=== PATIENT | female | born 1970 | race Caucasian/White ===

== ENCOUNTER 2018-05-30 17:58 | Observation (INO) | payer MEDICARE, OTHER ==
[~2018-05-30] VITALS: Ht 160 cm; Wt 100.7 kg
[~2018-05-30 17:58] MED LIST changes: -ALBU18HF INH; -ALPR0.5T6 PO; -AMOX1TAB11 PO; -BUDE10.2 INH; -CITA40TA5 PO; -CYCL-331 PO; -DULO60CA44 PO; -DULO60CA6 PO; -FERR325T20 PO; -FOLI1TAB35 PO; -FURO20TA3 PO; -LACT1CAP24 PO; -LACT1CAP6 PO; -MIRA25TA PO; -MONT10TA9 PO; -NAPR-514 PO; -OMEP40CA5 PO; -OXYC1TAB8 PO; -POTA20TA4 PO; -PROM25TA10 PO; -RANI150T2 PO; -RIVA15TA PO; -RIVA20TA2 PO; -SUCR1TAB PO; -SUMA100T4 PO; -TOPI100T8 PO; -TOPI200T6 PO
[2018-05-30] MEDS ORDERED: MORPHINE SULFATE 4 MG/ML DISP.SYRIN. IV ONE (19:30)
[2018-05-30 20:04] LABS: BASO % 1 % (0-3); EOS # 0.2 x10^3/uL (0.0-0.7); EOS % 3 % (0-3); HEMATOCRIT 36.6 % (36.0-47.0); LYMPH # 2.3 x10^3/uL (1.0-4.8); LYMPH % 33 % (24-48); MEAN CORPUSCULAR HEMOGLOBIN 30 pg (25-35); MEAN CORPUSCULAR HGB CONC 33 g/dL (31-37); MEAN CORPUSCULAR VOLUME 91 fL (79-100); MONO # 0.5 x10^3/uL (0.0-1.1); MONO % 7 % (0-9); NEUT # 3.8 x10^3uL (1.8-7.7); NEUT % 56 % (31-73); PLATELET COUNT 236 x10^3/uL (140-400); RED BLOOD COUNT 4.04 x10^6/uL (3.50-5.40); RED CELL DISTRIBUTION WIDTH 14.8 % (11.5-14.5); WHITE BLOOD COUNT 6.8 x10^3/uL (4.0-11.0)
[2018-05-30 20:10] LABS: CALCIUM 9.3 mg/dL (8.5-10.1); CREATININE 0.6 mg/dL (0.6-1.0); GFR 105.8; POTASSIUM 3.3 mmol/L (3.5-5.1)
[2018-05-30] MEDS ORDERED: IV NORMAL SALINE 1,000ML 1,000 ML IV ONE (20:15)
[2018-05-30] MEDS ORDERED: KETOROLAC 15 MG/ML VIAL. IV ONE (20:45)
--- NOTE | 2018-05-30 20:50 | PHYS DOC ---
Adult General Chief Complaint Chief Complaint Leg pain HPI HPI 48 years old female was diagnosed with DVT this morning due to leg pain she had a sonogram showed right posterior tibial vein clot. Her primary care provider Dr. Liu called rescue to come to the emergency department for admission No chest pain no shortness breath no urgency no frequency no hematuria no other symptoms Review of Systems Review of Systems Constitutional: Denies fever or chills [] Eyes: Denies change in visual acuity, redness, or eye pain [] HENT: Denies nasal congestion or sore throat [] Respiratory: Denies cough or shortness of breath [] Cardiovascular: No additional information not addressed in HPI [] GI: Denies abdominal pain, nausea, vomiting, bloody stools or diarrhea [] : Denies dysuria or hematuria [] Musculoskeletal: Denies back pain or joint pain [] Integument: Denies rash or skin lesions [] Neurologic: Denies headache, focal weakness or sensory changes [] Endocrine: Denies polyuria or polydipsia [] All other systems were reviewed and found to be within normal limits, except as documented in this note. Current Medications Current Medications Current Medications Medications (Trade) Dose Ordered Sig/Miguel A Start Time Stop Time Status Last Admin Dose Admin Enoxaparin Sodium (Lovenox 120mg Syringe) 120 mg 1X ONCE 05/30/18 20:45 05/30/18 20:46 UNV Ketorolac Tromethamine (Toradol 15mg Vial) 15 mg 1X ONCE 05/30/18 20:45 05/30/18 20:46 DC Morphine Sulfate (Morphine 4mg Syringe) 4 mg 1X ONCE 05/30/18 19:30 05/30/18 19:31 DC Sodium Chloride 1,000 ml @ 1,000 mls/hr 1X ONCE 05/30/18 20:15 05/30/18 21:14 05/30/18 20:27 1,000 MLS/HR Allergies Allergies Allergies Coded Allergies Type Severity Reaction Last Updated Verified codeine Allergy Intermediate Nausea and Vomiting 10/26/13 Yes morphine Allergy Intermediate Itching 05/30/18 Yes influenza virus vaccine, specific Allergy Unknown 01/16/14 No Physical Exam Physical Exam Constitutional: Well developed, well nourished, no acute distress, non-toxic appearance. [] HENT: Normocephalic, atraumatic, bilateral external ears normal, oropharynx moist, no oral exudates, nose normal. [] Eyes: PERRLA, EOMI, conjunctiva normal, no discharge. [] Neck: Normal range of motion, no tenderness, supple, no stridor. [] Cardiovascular:Heart rate regular rhythm, no murmur [] Lungs & Thorax: Bilateral breath sounds clear to auscultation [] Abdomen: Bowel sounds normal, soft, no tenderness, no masses, no pulsatile masses. [] Skin: Warm, dry, no erythema, no rash. [] Back: No tenderness, no CVA tenderness. [] Extremities: Tender right leg Neurologic: Alert and oriented X 3, normal motor function, normal sensory function, no focal deficits noted. [] Psychologic: Affect normal, judgement normal, mood normal. [] Current Patient Data Vital Signs Vital Signs Date Time Temp Pulse Resp B/P (MAP) Pulse Ox O2 Delivery O2 Flow Rate FiO2 05/30/18 18:00 98.3 78 22 97 Room Air Lab Results Laboratory Tests Test 05/30/18 19:47 White Blood Count 6.8 x10^3/uL (4.0-11.0) Red Blood Count 4.04 x10^6/uL (3.50-5.40) Hemoglobin 12.0 g/dL (12.0-15.5) Hematocrit 36.6 % (36.0-47.0) Mean Corpuscular Volume 91 fL (79-100) Mean Corpuscular Hemoglobin 30 pg (25-35) Mean Corpuscular Hemoglobin Concent 33 g/dL (31-37) Red Cell Distribution Width 14.8 % (11.5-14.5) H Platelet Count 236 x10^3/uL (140-400) Neutrophils (%) (Auto) 56 % (31-73) Lymphocytes (%) (Auto) 33 % (24-48) Monocytes (%) (Auto) 7 % (0-9) Eosinophils (%) (Auto) 3 % (0-3) Basophils (%) (Auto) 1 % (0-3) Neutrophils # (Auto) 3.8 x10^3uL (1.8-7.7) Lymphocytes # (Auto) 2.3 x10^3/uL (1.0-4.8) Monocytes # (Auto) 0.5 x10^3/uL (0.0-1.1) Eosinophils # (Auto) 0.2 x10^3/uL (0.0-0.7) Basophils # (Auto) 0.0 x10^3/uL (0.0-0.2) Sodium Level 142 mmol/L (136-145) Potassium Level 3.3 mmol/L (3.5-5.1) L Chloride Level 105 mmol/L (98-107) Carbon Dioxide Level 27 mmol/L (21-32) Anion Gap 10 (6-14) Blood Urea Nitrogen 15 mg/dL (7-20) Creatinine 0.6 mg/dL (0.6-1.0) Estimated GFR (Cockcroft-Gault) 105.8 Glucose Level 84 mg/dL (70-99) Calcium Level 9.3 mg/dL (8.5-10.1) EKG EKG [] Radiology/Procedures Radiology/Procedures [] Course & Med Decision Making Course & Med Decision Making Pertinent Labs and Imaging studies reviewed. (See chart for details) [] Final Impression Final Impression [] Problems: (1) DVT (deep venous thrombosis) Qualifiers: Qualified Codes: I82.441 - Acute embolism and thrombosis of right tibial vein Dragon Disclaimer Dragon Disclaimer This electronic medical record was generated, in whole or in part, using a voice recognition dictation system. FABIEN GOMEZ MD May 30, 2018 20:50
[2018-05-30] MEDS ORDERED: ACETAMINOPHEN 325 MG TABLET PO PRN (21:00)
[2018-05-30] MEDS ORDERED: ENOXAPARIN ** NOTE DOSE ** SYRINGE SQ ONE (21:00)
[2018-05-30] MEDS ORDERED: ONDANSETRON PF 4 MG/2 ML VIAL. IV PRN (21:00)
[2018-05-30] MEDS ORDERED: RIVA15TA PO (21:37)
[2018-05-30] MEDS ORDERED: RIVA20TA2 PO (21:37)
[2018-05-30] MEDS ORDERED: RIVAROXABAN 15 MG TABLET. PO ONE (22:30)
[2018-05-31] VITALS: BP 123/75
[2018-05-31] MEDS ORDERED: ALPRAZolam 0.5 MG TABLET PO PRN (00:45)
[2018-05-31] MEDS ORDERED: CYCLOBENZAPRINE 10 MG TABLET. PO PRN (00:45)
[2018-05-31] MEDS ORDERED: PROMETHAZINE 25 MG TABLET. PO PRN (00:45)
[2018-05-31] MEDS ORDERED: oxyCODONE/APAP 7.5/325 1 TAB TABLET PO PRN (00:45)
[2018-05-31] MEDS ORDERED: ALBUTEROL SULFATE 8GM INHALER. INH PRN (00:45)
[2018-05-31] MEDS ORDERED: TOPI200T6 PO (01:25)
[2018-05-31] MEDS ORDERED: CYCL-331 PO (01:25)
[2018-05-31] MEDS ORDERED: MONT10TA9 PO ×2 (01:25→03:38)
[2018-05-31] MEDS ORDERED: FOLI1TAB35 PO ×2 (01:25→03:38)
[2018-05-31] MEDS ORDERED: FERR325T20 PO (01:25)
[2018-05-31] MEDS ORDERED: NAPR-514 PO (01:25)
[2018-05-31] MEDS ORDERED: POTA20TA4 PO (01:25)
[2018-05-31] MEDS ORDERED: PROM25TA10 PO (01:25)
[2018-05-31] MEDS ORDERED: ALBU18HF INH (01:25)
[2018-05-31] MEDS ORDERED: AMOX1TAB11 PO (01:25)
[2018-05-31] MEDS ORDERED: OXYC1TAB8 PO (01:25)
[2018-05-31] MEDS ORDERED: DULO60CA44 PO (01:25)
[2018-05-31] MEDS ORDERED: LACT1CAP6 PO (01:25)
[2018-05-31] MEDS ORDERED: BUDE10.2 INH (01:25)
[2018-05-31] MEDS ORDERED: CITA40TA5 PO ×2 (01:25→03:38)
[2018-05-31] MEDS ORDERED: OMEP40CA5 PO ×2 (01:25→03:38)
[2018-05-31] MEDS ORDERED: SUCR1TAB PO ×2 (01:25→03:38)
[2018-05-31] MEDS ORDERED: RANI150T2 PO ×2 (01:25→03:38)
[2018-05-31] MEDS ORDERED: ALPR0.5T6 PO ×2 (01:25→03:38)
[2018-05-31] MEDS ORDERED: SUMA100T4 PO ×2 (01:25→03:38)
[2018-05-31] MEDS ORDERED: MIRA25TA PO (01:25)
[2018-05-31] MEDS ORDERED: FURO20TA3 PO (01:25)
[2018-05-31 03:13] VITALS: BP 165/87
[2018-05-31] MEDS ORDERED: DULO60CA6 PO (03:38)
[2018-05-31] MEDS ORDERED: LACT1CAP24 PO (03:38)
[2018-05-31] MEDS ORDERED: TOPI100T8 PO (03:38)
[2018-05-31 07:04] VITALS: BP 147/90
[2018-05-31] MEDS ORDERED: SUCRALFATE 1 GM TABLET. PO SCH (07:30)
[2018-05-31] MEDS ORDERED: PANTOPRAZOLE 40 MG TABLET. PO SCH (07:30)
[2018-05-31] MEDS ORDERED: POTASSIUM CHLORIDE 20 MEQ TABLET.ER. PO ONE (07:30)
--- NOTE | 2018-05-31 07:35 | PDOC1 ---
History of Present Illness Chief Complaint: LOWER EXT PAIN Allergies: Coded Allergies: codeine (Verified Allergy, Intermediate, Nausea and Vomiting, 05/31/18) morphine (Verified Allergy, Intermediate, Itching, 05/31/18) influenza virus vaccine, specific (Unverified Allergy, Unknown, 05/31/18) Review of Systems Review Of Systems Fourteen system , review of systems has been reviewed. See HPI for pertinent positives and negative responses, other panda all other systems are negative, non pertinent or non contributory Medications Current Medications Morphine Sulfate (Morphine 4mg Syringe) 4 mg 1X ONCE IV ; Start 05/30/18 at 19: 30; Stop 05/30/18 at 19:31; Status DC Sodium Chloride 1,000 ml @ 1,000 mls/hr 1X ONCE IV Last administered on at 20:27; Start 05/30/18 at 20:15; Stop 05/30/18 at 21:14; Status DC Ketorolac Tromethamine (Toradol 15mg Vial) 15 mg 1X ONCE IV Last administered on 05/30/18at 20:38; Start 05/30/18 at 20:45; Stop 05/30/18 at 20:46; Status DC Enoxaparin Sodium (Lovenox 120mg Syringe) 120 mg 1X ONCE SQ ; Start 05/30/18 at 21:00; Stop 05/30/18 at 22:06; Status DC Ondansetron HCl (Zofran) 4 mg PRN Q4HRS PRN IV NAUSEA/VOMITING; Start 05/30/18 at 21:00; Stop 05/31/18 at 20:59 Acetaminophen (Tylenol) 650 mg PRN Q4HRS PRN PO FEVER; Start 05/30/18 at 21:00 ; Stop 05/31/18 at 20:59 Rivaroxaban (Xarelto) 15 mg ONCE ONCE PO Last administered on 05/30/18at 23:08 ; Start 05/30/18 at 22:30; Stop 05/30/18 at 22:31; Status DC Albuterol Sulfate (Ventolin Hfa Inhaler) 2 puff PRN Q6HRS PRN INH SHORTNESS OF BREATH; Start 05/31/18 at 00:45 Cyclobenzaprine HCl (Flexeril) 10 mg PRN Q8HRS PRN PO MUSCLE SPASMS; Start 05/31/18 at 00:45 Ferrous Sulfate (Feosol) 325 mg DAILY PO ; Start 05/31/18 at 09:00 Furosemide (Lasix) 20 mg DAILY08 PO ; Start 05/31/18 at 08:00 Mirabegron (Myrbetriq) 25 mg DAILY08 PO ; Start 05/31/18 at 08:00 Oxycodone/ Acetaminophen (Percocet 7.5/ 325) 1 tab PRN Q6HRS PRN PO PAIN; Start 05/31/18 at 00:45 Potassium Chloride (Klor-Con) 20 meq DAILY08 PO ; Start 05/31/18 at 08:00 Promethazine HCl (Phenergan) 25 mg PRN Q8HRS PRN PO NAUSEA; Start 05/31/18 at 00:45 Alprazolam (Xanax) 0.5 mg PRN Q12HR PRN PO ANXIETY / AGITATION; Start 05/31/18 at 00:45 Citalopram Hydrobromide (CeleXA) 40 mg DAILY08 PO ; Start 05/31/18 at 08:00 Duloxetine HCl (Cymbalta) 60 mg DAILY08 PO ; Start 05/31/18 at 08:00 Multivitamins/ Calcium (Thera-M Plus) 1 tab DAILY08 PO ; Start 05/31/18 at 08:00 Lactobacillus Rhamnosus (Culturelle) 1 cap DAILY10 PO ; Start 05/31/18 at 10:00 Montelukast Sodium (Singulair) 10 mg DAILY08 PO ; Start 05/31/18 at 08:00 Pantoprazole Sodium (Protonix) 40 mg DAILYAC PO ; Start 05/31/18 at 07:30 Famotidine (Pepcid) 20 mg BID PO ; Start 05/31/18 at 09:00 Sucralfate (Carafate) 1 gm QIDACHS PO ; Start 05/31/18 at 07:30 Sumatriptan Succinate (Imitrex) 50 mg Q12HR PO ; Start 05/31/18 at 09:00 Topiramate (Topamax) 200 mg BID PO ; Start 05/31/18 at 09:00 Potassium Chloride (Klor-Con) 20 meq 1X ONCE PO ; Start 05/31/18 at 07:30; Stop 05/31/18 at 07:31; Status DC Active Scripts Active Xarelto (Rivaroxaban) 20 Mg Tablet 20 Mg PO DAILY 30 Days Xarelto (Rivaroxaban) 15 Mg Tablet 15 Mg PO BID 15 Days Reported One Daily For Women Tablet (Folic Acid/Mv,Fe,Other Min) 1 Each Tablet 1 Each PO DAILY10 Omeprazole 40 Mg Capsule.dr 1 Cap PO DAILY07 Sucralfate 1 Gm Tablet 1 Tab PO QIDACHS Ranitidine Hcl 150 Mg Tablet 1 Tab PO BID Acidophilus Lactobacillus (Lactobacillus Acidophilus) 1 Each Capsule 1 Each PO DAILY10 Montelukast Sodium Tablet (Montelukast Sodium) 10 Mg Tablet 1 Tab PO DAILY08 Sumatriptan Succinate 100 Mg Tablet 1 Tab PO Q12HR PRN Alprazolam 0.5 Mg Tablet 1 Tab PO BID Cymbalta (Duloxetine Hcl) 60 Mg Capsule. 1 Cap PO DAILY08 Citalopram Hbr (Citalopram Hydrobromide) 40 Mg Tablet 40 Mg PO DAILY08 Topiramate 100 Mg Tablet 2 Tab PO BID Ferosul (Ferrous Sulfate) 325 Mg Tablet 1 Tab PO DAILY Myrbetriq (Mirabegron) 25 Mg Tab.er.24h 25 Mg PO DAILY08 Oxycodon-Acetaminophen 7.5-325 (Oxycodone Hcl/Acetaminophen) 1 Each Tablet 1 Tab PO Q6HRS PRN Naproxen 500 Mg Tablet 500 Mg PO BID PRN Cyclobenzaprine Hcl 10 Mg Tablet 10 Mg PO Q8HRS PRN Klor-Con M20 (Potassium Chloride) 20 Meq Tab.er.prt 20 Meq PO DAILY08 Symbicort 160-4.5 Mcg Inhaler (Budesonide/Formoterol Fumarate) 10.2 Gm Hfa.aer.ad 2 Puff INH BID Furosemide 20 Mg Tablet 20 Mg PO DAILY08 Promethazine Hcl 25 Mg Tablet 25 Mg PO Q8HRS PRN Ventolin Hfa Inhaler (Albuterol Sulfate) 18 Gm Hfa.aer.ad 2 Puff INH Q6HRS PRN Amox Tr-K Clv 875-125 Mg Tab (Amoxicillin/Potassium Clav) 1 Each Tablet 1 Tab PO BID Exam Vital Signs Vital Signs Date Time Temp Pulse Resp B/P (MAP) Pulse Ox O2 Delivery O2 Flow Rate FiO2 05/31/18 07:04 98.7 70 18 147/90 (109) 94 Room Air COURSE Allergies Coded Allergies Type Severity Reaction Last Updated Verified codeine Allergy Intermediate Nausea and Vomiting 05/31/18 Yes morphine Allergy Intermediate Itching 05/31/18 Yes influenza virus vaccine, specific Allergy Unknown 05/31/18 No Laboratory Tests Test 05/30/18 19:47 White Blood Count 6.8 x10^3/uL (4.0-11.0) Red Blood Count 4.04 x10^6/uL (3.50-5.40) Hemoglobin 12.0 g/dL (12.0-15.5) Hematocrit 36.6 % (36.0-47.0) Mean Corpuscular Volume 91 fL (79-100) Mean Corpuscular Hemoglobin 30 pg (25-35) Mean Corpuscular Hemoglobin Concent 33 g/dL (31-37) Red Cell Distribution Width 14.8 % (11.5-14.5) Platelet Count 236 x10^3/uL (140-400) Neutrophils (%) (Auto) 56 % (31-73) Lymphocytes (%) (Auto) 33 % (24-48) Monocytes (%) (Auto) 7 % (0-9) Eosinophils (%) (Auto) 3 % (0-3) Basophils (%) (Auto) 1 % (0-3) Neutrophils # (Auto) 3.8 x10^3uL (1.8-7.7) Lymphocytes # (Auto) 2.3 x10^3/uL (1.0-4.8) Monocytes # (Auto) 0.5 x10^3/uL (0.0-1.1) Eosinophils # (Auto) 0.2 x10^3/uL (0.0-0.7) Basophils # (Auto) 0.0 x10^3/uL (0.0-0.2) Sodium Level 142 mmol/L (136-145) Potassium Level 3.3 mmol/L (3.5-5.1) Chloride Level 105 mmol/L (98-107) Carbon Dioxide Level 27 mmol/L (21-32) Anion Gap 10 (6-14) Blood Urea Nitrogen 15 mg/dL (7-20) Creatinine 0.6 mg/dL (0.6-1.0) Estimated GFR (Cockcroft-Gault) 105.8 Glucose Level 84 mg/dL (70-99) Calcium Level 9.3 mg/dL (8.5-10.1) Current Medications Medications (Trade) Dose Ordered Sig/Miguel A Route PRN Reason Start Time Stop Time Status Last Admin Dose Admin Morphine Sulfate (Morphine 4mg Syringe) 4 mg 1X ONCE IV 05/30/18 19:30 05/30/18 19:31 DC Sodium Chloride 1,000 ml @ 1,000 mls/hr 1X ONCE IV 05/30/18 20:15 05/30/18 21:14 DC 05/30/18 20:27 Ketorolac Tromethamine (Toradol 15mg Vial) 15 mg 1X ONCE IV 05/30/18 20:45 05/30/18 20:46 DC 05/30/18 20:38 Enoxaparin Sodium (Lovenox 120mg Syringe) 120 mg 1X ONCE SQ 05/30/18 21:00 05/30/18 22:06 DC Ondansetron HCl (Zofran) 4 mg PRN Q4HRS PRN IV NAUSEA/VOMITING 05/30/18 21:00 05/31/18 20:59 Acetaminophen (Tylenol) 650 mg PRN Q4HRS PRN PO FEVER 05/30/18 21:00 05/31/18 20:59 Rivaroxaban (Xarelto) 15 mg ONCE ONCE PO 05/30/18 22:30 05/30/18 22:31 DC 05/30/18 23:08 Albuterol Sulfate (Ventolin Hfa Inhaler) 2 puff PRN Q6HRS PRN INH SHORTNESS OF BREATH 05/31/18 00:45 Cyclobenzaprine HCl (Flexeril) 10 mg PRN Q8HRS PRN PO MUSCLE SPASMS 05/31/18 00:45 Ferrous Sulfate (Feosol) 325 mg DAILY PO 05/31/18 09:00 Furosemide (Lasix) 20 mg DAILY08 PO 05/31/18 08:00 Mirabegron (Myrbetriq) 25 mg DAILY08 PO 05/31/18 08:00 Oxycodone/ Acetaminophen (Percocet 7.5/ 325) 1 tab PRN Q6HRS PRN PO PAIN 05/31/18 00:45 Potassium Chloride (Klor-Con) 20 meq DAILY08 PO 05/31/18 08:00 Promethazine HCl (Phenergan) 25 mg PRN Q8HRS PRN PO NAUSEA 05/31/18 00:45 Alprazolam (Xanax) 0.5 mg PRN Q12HR PRN PO ANXIETY / AGITATION 05/31/18 00:45 Citalopram Hydrobromide (CeleXA) 40 mg DAILY08 PO 05/31/18 08:00 Duloxetine HCl (Cymbalta) 60 mg DAILY08 PO 05/31/18 08:00 Multivitamins/ Calcium (Thera-M Plus) 1 tab DAILY08 PO 05/31/18 08:00 Lactobacillus Rhamnosus (Culturelle) 1 cap DAILY10 PO 05/31/18 10:00 Montelukast Sodium (Singulair) 10 mg DAILY08 PO 05/31/18 08:00 Pantoprazole Sodium (Protonix) 40 mg DAILYAC PO 05/31/18 07:30 Famotidine (Pepcid) 20 mg BID PO 05/31/18 09:00 Sucralfate (Carafate) 1 gm QIDACHS PO 05/31/18 07:30 Sumatriptan Succinate (Imitrex) 50 mg Q12HR PO 05/31/18 09:00 Topiramate (Topamax) 200 mg BID PO 05/31/18 09:00 Potassium Chloride (Klor-Con) 20 meq 1X ONCE PO 05/31/18 07:30 05/31/18 07:31 DC I & O 05/31/18 00:00 Intake Total 1060 ml Balance 1060 ml Orders Procedure Category Date Status Time Cbc W [employer] LAB 05/30/18 Complete 19:09 Basic Metabolic Panel LAB 05/30/18 Complete 19:09 I Stat Inr ELAINE 05/30/18 In Process 19:09 Morphine Sulfate PHA 05/30/18 Complete (Morphine 4mg Syringe) 19:30 Iv Normal Saline PHA 05/30/18 Complete 1,000ml (Iv Sodium 20:15 Ketorolac 15mg Vial PHA 05/30/18 Complete (Toradol 15mg Vial) 20:45 Drugs Of Abuse Ur LAB 05/30/18 Logged 20:37 Enoxaparin 120mg PHA 05/30/18 Complete Syringe (Lovenox 120mg 21:00 [place] Order ADT 05/30/18 Transmitted 20:46 Code Status CODE 05/30/18 Transmitted 20:46 Vital Signs, Per ELAINE 05/30/18 In Process Protocol 20:46 Regular DIET 05/31/18 Transmitted Breakfast Ondansetron Pf PHA 05/30/18 In Process (Zofran) 21:00 Acetaminophen PHA 05/30/18 In Process (Tylenol) 21:00 Rivaroxaban (Xarelto) PHA 05/30/18 Complete 22:30 Mrsa By Pcr LAB 05/30/18 In Process 23:13 Admit Orders ADT 05/31/18 Transmitted 00:25 Albuterol Sulfate 8gm PHA 05/31/18 In Process Inhaler (Ventolin 00:45 Ferrous Sulfate PHA 05/31/18 In Process (Feosol) 09:00 Furosemide Tablet PHA 05/31/18 In Process (Lasix) 08:00 Mirabegron (Myrbetriq) PHA 05/31/18 In Process 08:00 Oxycodone/Apap PHA 05/31/18 In Process 7.5/325 (Percocet 00:45 Potassium Chloride PHA 05/31/18 In Process Tab (Klor-Con) 08:00 Alprazolam (Xanax) PHA 05/31/18 In Process 00:45 Citalopram (Celexa) PHA 05/31/18 In Process 08:00 Duloxetine Hcl PHA 05/31/18 In Process (Cymbalta) 08:00 Multivitamin With PHA 05/31/18 In Process Mineral (Thera-M Plus) 08:00 Lactobacillus PHA 05/31/18 In Process Rhamnosus Gg 10:00 Montelukast PHA 05/31/18 In Process (Singulair) 08:00 Pantoprazole PHA 05/31/18 In Process (Protonix) 07:30 Famotidine (Pepcid) PHA 05/31/18 In Process 09:00 Sucralfate (Carafate) PHA 05/31/18 In Process 07:30 Sumatriptan Succinate PHA 05/31/18 In Process (Imitrex) 09:00 Topiramate (Topamax) PHA 05/31/18 In Process 09:00 Promethazine PHA 05/31/18 In Process (Phenergan) 00:45 Cyclobenzaprine PHA 05/31/18 In Process (Flexeril) 00:45 Potassium Chloride PHA 05/31/18 Complete Tab (Klor-Con) 07:30 Vital Signs Date Time Temp Pulse Resp B/P (MAP) Pulse Ox O2 Delivery O2 Flow Rate FiO2 05/31/18 07:04 98.7 70 18 147/90 (109) 94 Room Air VINCENT REHMAN DO May 31, 2018 07:35
--- NOTE | 2018-05-31 07:41 | PDOC1 ---
History of Present Illness History of Present Illness 48 years old female was diagnosed with DVT this morning due to leg pain she had a sonogram showed right posterior tibial vein clot. Her primary care provider Dr. Liu called EMS to bring patient to the emergency department for admission No chest pain no shortness breath no urgency no frequency no hematuria no other symptoms. ED workup revealed potassium of 3.3 otherwise CBC and chemistry were unremarkable. Patient takes potassium at home. When I evaluated her early this morning she denied any new or worsening symptoms. She reported that she had been given instructions in detail by the emergency department physician regarding Xarelto. She would like to go home now actually she would like to take a cab to one of her friends houses as she says her works and will be asleep until approximately 1 PM. She denies any questions or complaints and wants to go home now. 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 See HPI for pertinent positives and negative responses, other panda all other systems are negative, non pertinent or non contributory Constitutional: No: Fever, Chills Eyes: No: Blurry vision, Decreased vision ENT: No: Ear pain, Mouth pain Respiratory: No: Cough, Shortness of breath Cardiovascular: No: Chest Pain, Palpitations Gastrointestinal: No: Nausea, Vomiting, Abdominal Pain Musculoskeletal: YES: Other (see history of present illness); No: Joint Swelling, Muscular Weakness Neurological: No: Confusion, Dizziness, Headaches, Impaired Coord/balance Medications Current Medications Morphine Sulfate (Morphine 4mg Syringe) 4 mg 1X ONCE IV ; Start 05/30/18 at 19: 30; Stop 05/30/18 at 19:31; Status DC Sodium Chloride 1,000 ml @ 1,000 mls/hr 1X ONCE IV Last administered on at 20:27; Start 05/30/18 at 20:15; Stop 05/30/18 at 21:14; Status DC Ketorolac Tromethamine (Toradol 15mg Vial) 15 mg 1X ONCE IV Last administered on 05/30/18at 20:38; Start 05/30/18 at 20:45; Stop 05/30/18 at 20:46; Status DC Enoxaparin Sodium (Lovenox 120mg Syringe) 120 mg 1X ONCE SQ ; Start 05/30/18 at 21:00; Stop 05/30/18 at 22:06; Status DC Ondansetron HCl (Zofran) 4 mg PRN Q4HRS PRN IV NAUSEA/VOMITING; Start 05/30/18 at 21:00; Stop 05/31/18 at 20:59 Acetaminophen (Tylenol) 650 mg PRN Q4HRS PRN PO FEVER; Start 05/30/18 at 21:00 ; Stop 05/31/18 at 20:59 Rivaroxaban (Xarelto) 15 mg ONCE ONCE PO Last administered on 05/30/18at 23:08 ; Start 05/30/18 at 22:30; Stop 05/30/18 at 22:31; Status DC Albuterol Sulfate (Ventolin Hfa Inhaler) 2 puff PRN Q6HRS PRN INH SHORTNESS OF BREATH; Start 05/31/18 at 00:45 Cyclobenzaprine HCl (Flexeril) 10 mg PRN Q8HRS PRN PO MUSCLE SPASMS; Start 05/31/18 at 00:45 Ferrous Sulfate (Feosol) 325 mg DAILY PO ; Start 05/31/18 at 09:00 Furosemide (Lasix) 20 mg DAILY08 PO ; Start 05/31/18 at 08:00 Mirabegron (Myrbetriq) 25 mg DAILY08 PO ; Start 05/31/18 at 08:00 Oxycodone/ Acetaminophen (Percocet 7.5/ 325) 1 tab PRN Q6HRS PRN PO PAIN; Start 05/31/18 at 00:45 Potassium Chloride (Klor-Con) 20 meq DAILY08 PO ; Start 05/31/18 at 08:00 Promethazine HCl (Phenergan) 25 mg PRN Q8HRS PRN PO NAUSEA; Start 05/31/18 at 00:45 Alprazolam (Xanax) 0.5 mg PRN Q12HR PRN PO ANXIETY / AGITATION; Start 05/31/18 at 00:45 Citalopram Hydrobromide (CeleXA) 40 mg DAILY08 PO ; Start 05/31/18 at 08:00 Duloxetine HCl (Cymbalta) 60 mg DAILY08 PO ; Start 05/31/18 at 08:00 Multivitamins/ Calcium (Thera-M Plus) 1 tab DAILY08 PO ; Start 05/31/18 at 08:00 Lactobacillus Rhamnosus (Culturelle) 1 cap DAILY10 PO ; Start 05/31/18 at 10:00 Montelukast Sodium (Singulair) 10 mg DAILY08 PO ; Start 05/31/18 at 08:00 Pantoprazole Sodium (Protonix) 40 mg DAILYAC PO ; Start 05/31/18 at 07:30 Famotidine (Pepcid) 20 mg BID PO ; Start 05/31/18 at 09:00 Sucralfate (Carafate) 1 gm QIDACHS PO ; Start 05/31/18 at 07:30 Sumatriptan Succinate (Imitrex) 50 mg Q12HR PO ; Start 05/31/18 at 09:00 Topiramate (Topamax) 200 mg BID PO ; Start 05/31/18 at 09:00 Potassium Chloride (Klor-Con) 20 meq 1X ONCE PO ; Start 05/31/18 at 07:30; Stop 05/31/18 at 07:31; Status DC Active Scripts Active Xarelto (Rivaroxaban) 20 Mg Tablet 20 Mg PO DAILY 30 Days Xarelto (Rivaroxaban) 15 Mg Tablet 15 Mg PO BID 15 Days Reported One Daily For Women Tablet (Folic Acid/Mv,Fe,Other Min) 1 Each Tablet 1 Each PO DAILY10 Omeprazole 40 Mg Capsule. 1 Cap PO DAILY07 Sucralfate 1 Gm Tablet 1 Tab PO QIDACHS Ranitidine Hcl 150 Mg Tablet 1 Tab PO BID Acidophilus Lactobacillus (Lactobacillus Acidophilus) 1 Each Capsule 1 Each PO DAILY10 Montelukast Sodium Tablet (Montelukast Sodium) 10 Mg Tablet 1 Tab PO DAILY08 Sumatriptan Succinate 100 Mg Tablet 1 Tab PO Q12HR PRN Alprazolam 0.5 Mg Tablet 1 Tab PO BID Cymbalta (Duloxetine Hcl) 60 Mg Capsule. 1 Cap PO DAILY08 Citalopram Hbr (Citalopram Hydrobromide) 40 Mg Tablet 40 Mg PO DAILY08 Topiramate 100 Mg Tablet 2 Tab PO BID Ferosul (Ferrous Sulfate) 325 Mg Tablet 1 Tab PO DAILY Myrbetriq (Mirabegron) 25 Mg Tab.er.24h 25 Mg PO DAILY08 Oxycodon-Acetaminophen 7.5-325 (Oxycodone Hcl/Acetaminophen) 1 Each Tablet 1 Tab PO Q6HRS PRN Naproxen 500 Mg Tablet 500 Mg PO BID PRN Cyclobenzaprine Hcl 10 Mg Tablet 10 Mg PO Q8HRS PRN Klor-Con M20 (Potassium Chloride) 20 Meq Tab.er.prt 20 Meq PO DAILY08 Symbicort 160-4.5 Mcg Inhaler (Budesonide/Formoterol Fumarate) 10.2 Gm Hfa.aer.ad 2 Puff INH BID Furosemide 20 Mg Tablet 20 Mg PO DAILY08 Promethazine Hcl 25 Mg Tablet 25 Mg PO Q8HRS PRN Ventolin Hfa Inhaler (Albuterol Sulfate) 18 Gm Hfa.aer.ad 2 Puff INH Q6HRS PRN Amox Tr-K Clv 875-125 Mg Tab (Amoxicillin/Potassium Clav) 1 Each Tablet 1 Tab PO BID Exam Vital Signs Vital Signs Date Time Temp Pulse Resp B/P (MAP) Pulse Ox O2 Delivery O2 Flow Rate FiO2 05/31/18 07:04 98.7 70 18 147/90 (109) 94 Room Air General Appearance: Alert, Oriented X3, Cooperative HEENT: Atraumatic, PERRLA, EOMI Respiratory: Clear to auscultation, Normal air movement Heart: Regular rate, No murmurs Abdominal: Normal bowel sounds, Soft Extremities: Other (mild right lower leg positive Homans sign no visualized erythema or obvious swelling) Neuro: Normal speech, Sensation intact, Cranial nerves 3-12 NL Psych/Mental Status: Mental status NL, Mood NL Assessment/Plan Assessment/Plan Right lower leg DVT Mild hypokalemia Take Xarelto as prescribed in the emergency department. Follow-up with your PCP this week for recheck and to discuss outpatient hematology consultation for her hypercoagulability workup. COURSE Allergies Coded Allergies Type Severity Reaction Last Updated Verified codeine Allergy Intermediate Nausea and Vomiting 05/31/18 Yes morphine Allergy Intermediate Itching 11/6/18 Yes influenza virus vaccine, specific Allergy Unknown 05/31/18 No Laboratory Tests Test 05/30/18 19:47 White Blood Count 6.8 x10^3/uL (4.0-11.0) Red Blood Count 4.04 x10^6/uL (3.50-5.40) Hemoglobin 12.0 g/dL (12.0-15.5) Hematocrit 36.6 % (36.0-47.0) Mean Corpuscular Volume 91 fL (79-100) Mean Corpuscular Hemoglobin 30 pg (25-35) Mean Corpuscular Hemoglobin Concent 33 g/dL (31-37) Red Cell Distribution Width 14.8 % (11.5-14.5) Platelet Count 236 x10^3/uL (140-400) Neutrophils (%) (Auto) 56 % (31-73) Lymphocytes (%) (Auto) 33 % (24-48) Monocytes (%) (Auto) 7 % (0-9) Eosinophils (%) (Auto) 3 % (0-3) Basophils (%) (Auto) 1 % (0-3) Neutrophils # (Auto) 3.8 x10^3uL (1.8-7.7) Lymphocytes # (Auto) 2.3 x10^3/uL (1.0-4.8) Monocytes # (Auto) 0.5 x10^3/uL (0.0-1.1) Eosinophils # (Auto) 0.2 x10^3/uL (0.0-0.7) Basophils # (Auto) 0.0 x10^3/uL (0.0-0.2) Sodium Level 142 mmol/L (136-145) Potassium Level 3.3 mmol/L (3.5-5.1) Chloride Level 105 mmol/L (98-107) Carbon Dioxide Level 27 mmol/L (21-32) Anion Gap 10 (6-14) Blood Urea Nitrogen 15 mg/dL (7-20) Creatinine 0.6 mg/dL (0.6-1.0) Estimated GFR (Cockcroft-Gault) 105.8 Glucose Level 84 mg/dL (70-99) Calcium Level 9.3 mg/dL (8.5-10.1) Current Medications Medications (Trade) Dose Ordered Sig/Miguel A Route PRN Reason Start Time Stop Time Status Last Admin Dose Admin Morphine Sulfate (Morphine 4mg Syringe) 4 mg 1X ONCE IV 05/30/18 19:30 05/30/18 19:31 DC Sodium Chloride 1,000 ml @ 1,000 mls/hr 1X ONCE IV 05/30/18 20:15 05/30/18 21:14 DC 05/30/18 20:27 Ketorolac Tromethamine (Toradol 15mg Vial) 15 mg 1X ONCE IV 05/30/18 20:45 05/30/18 20:46 DC 05/30/18 20:38 Enoxaparin Sodium (Lovenox 120mg Syringe) 120 mg 1X ONCE SQ 05/30/18 21:00 05/30/18 22:06 DC Ondansetron HCl (Zofran) 4 mg PRN Q4HRS PRN IV NAUSEA/VOMITING 05/30/18 21:00 05/31/18 20:59 Acetaminophen (Tylenol) 650 mg PRN Q4HRS PRN PO FEVER 05/30/18 21:00 05/31/18 20:59 Rivaroxaban (Xarelto) 15 mg ONCE ONCE PO 05/30/18 22:30 05/30/18 22:31 DC 05/30/18 23:08 Albuterol Sulfate (Ventolin Hfa Inhaler) 2 puff PRN Q6HRS PRN INH SHORTNESS OF BREATH 05/31/18 00:45 Cyclobenzaprine HCl (Flexeril) 10 mg PRN Q8HRS PRN PO MUSCLE SPASMS 05/31/18 00:45 Ferrous Sulfate (Feosol) 325 mg DAILY PO 05/31/18 09:00 Furosemide (Lasix) 20 mg DAILY08 PO 05/31/18 08:00 Mirabegron (Myrbetriq) 25 mg DAILY08 PO 05/31/18 08:00 Oxycodone/ Acetaminophen (Percocet 7.5/ 325) 1 tab PRN Q6HRS PRN PO PAIN 05/31/18 00:45 Potassium Chloride (Klor-Con) 20 meq DAILY08 PO 05/31/18 08:00 Promethazine HCl (Phenergan) 25 mg PRN Q8HRS PRN PO NAUSEA 05/31/18 00:45 Alprazolam (Xanax) 0.5 mg PRN Q12HR PRN PO ANXIETY / AGITATION 05/31/18 00:45 Citalopram Hydrobromide (CeleXA) 40 mg DAILY08 PO 05/31/18 08:00 Duloxetine HCl (Cymbalta) 60 mg DAILY08 PO 05/31/18 08:00 Multivitamins/ Calcium (Thera-M Plus) 1 tab DAILY08 PO 05/31/18 08:00 Lactobacillus Rhamnosus (Culturelle) 1 cap DAILY10 PO 05/31/18 10:00 Montelukast Sodium (Singulair) 10 mg DAILY08 PO 05/31/18 08:00 Pantoprazole Sodium (Protonix) 40 mg DAILYAC PO 05/31/18 07:30 Famotidine (Pepcid) 20 mg BID PO 05/31/18 09:00 Sucralfate (Carafate) 1 gm QIDACHS PO 05/31/18 07:30 Sumatriptan Succinate (Imitrex) 50 mg Q12HR PO 05/31/18 09:00 Topiramate (Topamax) 200 mg BID PO 05/31/18 09:00 Potassium Chloride (Klor-Con) 20 meq 1X ONCE PO 05/31/18 07:30 05/31/18 07:31 DC I & O 05/31/18 00:00 Intake Total 1060 ml Balance 1060 ml Orders Procedure Category Date Status Time Cbc W [employer] LAB 05/30/18 Complete 19:09 Basic Metabolic Panel LAB 05/30/18 Complete 19:09 I Stat Inr ELAINE 05/30/18 In Process 19:09 Morphine Sulfate PHA 05/30/18 Complete (Morphine 4mg Syringe) 19:30 Iv Normal Saline PHA 05/30/18 Complete 1,000ml (Iv Sodium 20:15 Ketorolac 15mg Vial PHA 05/30/18 Complete (Toradol 15mg Vial) 20:45 Drugs Of Abuse Ur LAB 05/30/18 Logged 20:37 Enoxaparin 120mg PHA 05/30/18 Complete Syringe (Lovenox 120mg 21:00 [place] Order ADT 05/30/18 Transmitted 20:46 Code Status CODE 05/30/18 Transmitted 20:46 Vital Signs, Per ELAINE 05/30/18 In Process Protocol 20:46 Regular DIET 05/31/18 Transmitted Breakfast Ondansetron Pf PHA 05/30/18 In Process (Zofran) 21:00 Acetaminophen PHA 05/30/18 In Process (Tylenol) 21:00 Rivaroxaban (Xarelto) PHA 05/30/18 Complete 22:30 Mrsa By Pcr LAB 05/30/18 In Process 23:13 Admit Orders ADT 05/31/18 Transmitted 00:25 Albuterol Sulfate 8gm PHA 05/31/18 In Process Inhaler (Ventolin 00:45 Ferrous Sulfate PHA 05/31/18 In Process (Feosol) 09:00 Furosemide Tablet PHA 05/31/18 In Process (Lasix) 08:00 Mirabegron (Myrbetriq) PHA 05/31/18 In Process 08:00 Oxycodone/Apap PHA 05/31/18 In Process 7.5/325 (Percocet 00:45 Potassium Chloride PHA 05/31/18 In Process Tab (Klor-Con) 08:00 Alprazolam (Xanax) PHA 05/31/18 In Process 00:45 Citalopram (Celexa) PHA 05/31/18 In Process 08:00 Duloxetine Hcl PHA 05/31/18 In Process (Cymbalta) 08:00 Multivitamin With PHA 05/31/18 In Process Mineral (Thera-M Plus) 08:00 Lactobacillus PHA 05/31/18 In Process Rhamnosus Gg 10:00 Montelukast PHA 05/31/18 In Process (Singulair) 08:00 Pantoprazole PHA 05/31/18 In Process (Protonix) 07:30 Famotidine (Pepcid) PHA 05/31/18 In Process 09:00 Sucralfate (Carafate) PHA 05/31/18 In Process 07:30 Sumatriptan Succinate PHA 05/31/18 In Process (Imitrex) 09:00 Topiramate (Topamax) PHA 05/31/18 In Process 09:00 Promethazine PHA 05/31/18 In Process (Phenergan) 00:45 Cyclobenzaprine PHA 05/31/18 In Process (Flexeril) 00:45 Potassium Chloride PHA 05/31/18 Complete Tab (Klor-Con) 07:30 Vital Signs Date Time Temp Pulse Resp B/P (MAP) Pulse Ox O2 Delivery O2 Flow Rate FiO2 05/31/18 07:04 98.7 70 18 147/90 (109) 94 Room Air VINCENT REHMAN DO May 31, 2018 07:41
[2018-05-31] MEDS ORDERED: MULTIVITAMIN with MINERAL TABLET. PO SCH (08:00)
[2018-05-31] MEDS ORDERED: FUROSEMIDE 20 MG TABLET PO SCH (08:00)
[2018-05-31] MEDS ORDERED: DULoxetine HCL 60 MG CAPSULE.DR PO SCH (08:00)
[2018-05-31] MEDS ORDERED: MIRABEGRON 25 MG TAB.ER.24H PO SCH (08:00)
[2018-05-31] MEDS ORDERED: CITALOPRAM 20 MG TABLET. PO SCH (08:00)
[2018-05-31] MEDS ORDERED: MONTELUKAST 10 MG TABLET. PO SCH (08:00)
[2018-05-31] MEDS ORDERED: POTASSIUM CHLORIDE 20 MEQ TABLET.ER. PO SCH (08:00)
[2018-05-31] MEDS ORDERED: FAMOTIDINE 20 MG TABLET PO SCH (09:00)
[2018-05-31] MEDS ORDERED: SUMAtriptan SUCCINATE 50 MG TABLET PO SCH (09:00)
[2018-05-31] MEDS ORDERED: FERROUS SULFATE 325 MG TABLET. PO SCH (09:00)
[2018-05-31] MEDS ORDERED: TOPIRAMATE 100 MG TABLET. PO SCH (09:00)
[2018-05-31] MEDS ORDERED: LACTOBACILLUS RHAMNOSUS GG 1 CAPSULE. PO SCH (10:00)
== END 2018-05-31 08:40 | disposition home or self-care (01) ==
LOC: ER 17:58 → UNDOADMOB 23:30 → ICU 23:30 → INTOOBSV 23:30 → ICU 05-31 07:30 → UNDODISOB 05-31 08:40
PROVIDERS: ADMIT Neuromusculoskeletal Medicine & OMM; ATTEND Neuromusculoskeletal Medicine & OMM
DX: I82.441 Acute embolism and thrombosis of right tibial vein (principal); E87.6 Hypokalemia; F32.9 Major depressive disorder, single episode, unspecified; J44.9 Chronic obstructive pulmonary disease, unspecified; K21.9 Gastro-esophageal reflux disease without esophagitis; F41.9 Anxiety disorder, unspecified; Z90.710 Acquired absence of both cervix and uterus; Z90.49 Acquired absence of other specified parts of digestive tract; Z88.5 Allergy status to narcotic agent; Z88.7 Allergy status to serum and vaccine; Z90.89 Acquired absence of other organs; Z79.899 Other long term (current) drug therapy
CPT/HCPCS: 36415; 80048; 85025; 87641; 93971; 96374; 99285; G0378; J1885; 96361; G0379; J7030

== ENCOUNTER → 2018-05-30 | Outpatient (CLI) | payer MEDICARE, OTHER ==
[~2018-05-30] MED LIST: ACET1TAB; ALBU18HF INH; ALPR0.5T6 PO; AMOX1TAB11 PO; BUDE10.2 INH; CITA40TA5 PO; CYCL-331 PO; DM/P295L2; DULO60CA44 PO; DULO60CA6 PO; FERR325T20 PO; FOLI1TAB35 PO; FURO20TA3 PO; LACT1CAP24 PO; LACT1CAP6 PO; LORA10TA3 PO; MIRA25TA PO; MONT10TA9 PO; NAPR-514 PO; OMEP20TA63 PO; OMEP40CA5 PO; OXYC1TAB8 PO; POTA20TA4 PO; PROM25TA10 PO; RANI150T2 PO; RANI150T21 PO; RIVA15TA PO; RIVA20TA2 PO; SUCR1TAB PO; SUMA100T4 PO; TOPI100T8 PO; TOPI200T6 PO
--- NOTE | 2018-05-30 17:51 | RAD ---
EXAM: Right lower extremity venous Doppler sonogram. HISTORY: Pain and swelling. TECHNIQUE: Govea scale and color Doppler sonographic evaluation of the right lower extremity veins with spectral waveform analysis was performed. FINDINGS: There is right posterior tibial occlusive venous thrombosis. There is normal color flow, normal compressibility and there are normal spectral waveforms in the common remainder of the lower extremity veins. IMPRESSION: Right posterior tibial occlusive venous thrombosis. Electronically signed by: Maren France MD (05/30/2018 5:48 PM) [facility]
== END | disposition home or self-care (01) ==
LOC: US 16:35
PROVIDERS: ATTEND General Practice
DX: I82.441 Acute embolism and thrombosis of right tibial vein (principal); D64.9 Anemia, unspecified
CPT/HCPCS: 93971

== ENCOUNTER 2018-11-15 10:01 | Emergency (ER) | payer MEDICARE, OTHER ==
[~2018-11-15 10:01] MED LIST changes: +ALBU2.5V8 INH; +ALPR0.5T6 PO; +AMOX1TAB11 PO; +BUDE10.2 INH; +CITA40TA5 PO; +CYCL-331 PO; +DULO60CA44 PO; +DULO60CA6 PO; +FERR325T20 PO; +FOLI1TAB35 PO; +FURO20TA3 PO; +LACT1CAP24 PO; +LACT1CAP6 PO; +MIRA25TA PO; +MONT10TA9 PO; +NAPR-514 PO; +OMEP40CA5 PO; +OXYC1TAB8 PO; +POTA20TA4 PO; +PROM25TA10 PO; +RANI150T2 PO; +RIVA15TA PO; +RIVA20TA2 PO; +SUCR1TAB PO; +SUMA100T4 PO; +TOPI100T8 PO; +TOPI200T6 PO
--- NOTE | 2018-11-15 10:17 | EKG ---
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
[2018-11-15] MEDS ORDERED: IV NORMAL SALINE 1,000ML 1,000 ML IV ONE (10:30)
[2018-11-15 10:48] LABS: BASO % 1 % (0-3); EOS # 0.1 x10^3/uL (0.0-0.7); EOS % 1 % (0-3); HEMATOCRIT 41.5 % (36.0-47.0); HEMOGLOBIN 13.6 g/dL (12.0-15.5); LYMPH # 1.6 x10^3/uL (1.0-4.8); LYMPH % 23 % (24-48); MEAN CORPUSCULAR HEMOGLOBIN 28 pg (25-35); MEAN CORPUSCULAR HGB CONC 33 g/dL (31-37); MEAN CORPUSCULAR VOLUME 86 fL (79-100); MONO # 0.3 x10^3/uL (0.0-1.1); MONO % 5 % (0-9); NEUT # 4.9 x10^3uL (1.8-7.7); NEUT % 70 % (31-73); PLATELET COUNT 236 x10^3/uL (140-400); RED BLOOD COUNT 4.83 x10^6/uL (3.50-5.40)
[2018-11-15 11:01] LABS: ALBUMIN 3.1 g/dL (3.4-5.0); ALBUMIN/GLOBULIN RATIO 0.7 (1.0-1.7); GFR 58.7; POTASSIUM 3.4 mmol/L (3.5-5.1); TOTAL BILIRUBIN 0.2 mg/dL (0.2-1.0); TOTAL PROTEIN 7.3 g/dL (6.4-8.2)
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
[2018-11-15 12:53] LABS: AMPHETAMINE/METHAMPHETAMINE NEG (NEG); BARBITURATES NEG (NEG); BENZODIAZEPINES POS (NEG); CANNABINOIDS NEG (NEG); COCAINE NEG (NEG); METHADONE NEG (NEG); OPIATES NEG (NEG); PHENCYCLIDINE NEG (NEG)
[2018-11-15 12:57] LABS: BACTERIA,URINE 0 /HPF (0-FEW); BILIRUBIN,URINE NEG (NEG); CLARITY,URINE CLEAR; COLOR,URINE YELLOW; GLUCOSE,URINE NEG (NEG); HYALINE CASTS, URINE OCC /HPF; NITRITE,URINE NEG (NEG); RBC,URINE 0 /HPF (0-2); SQUAMOUS EPITHELIAL CELL,UR OCC /LPF; UROBILINOGEN,URINE 0.2 mg/dL (0.2 mg/dL); WBC,URINE 0 /HPF (0-4)
[2018-11-15 13:14] VITALS: BP 117/73
[2018-11-15] MEDS ORDERED: HYDROcodone/APAP 5/325MG 1 TAB TABLET PO ONE (13:15)
== END 2018-11-15 13:40 | disposition home or self-care (01) ==
LOC: ER 10:01
DX: R51 Headache (principal); M54.2 Cervicalgia; M25.551 Pain in right hip; R07.89 Other chest pain; M25.552 Pain in left hip; F41.9 Anxiety disorder, unspecified; J44.9 Chronic obstructive pulmonary disease, unspecified; F32.9 Major depressive disorder, single episode, unspecified; K21.9 Gastro-esophageal reflux disease without esophagitis; G43.909 Migraine, unspecified, not intractable, without status migrainosus; F17.200 Nicotine dependence, unspecified, uncomplicated; Z86.718 Personal history of other venous thrombosis and embolism; Z88.5 Allergy status to narcotic agent; Z91.041 Radiographic dye allergy status; Z88.7 Allergy status to serum and vaccine; V49.49XA Driver injured in collision with other motor vehicles in traffic accident, initial encounter; Y93.I9 Activity, other involving external motion; Y92.89 Other specified places as the place of occurrence of the external cause; Y99.8 Other external cause status
CPT/HCPCS: 36415; 70450; 71045; 71250; 72125; 74176; 80053; 80307; 81001; 84484; 85025; 93005; 99285-25; J7030